=== PATIENT | male | born 1995 | race Caucasian/White ===

== ENCOUNTER 2016-11-18 17:51 | Emergency (ER) | payer BC ==
[~2016-11-18] VITALS: Ht 182.9 cm; Wt 77.3 kg
[2016-11-18 17:55] VITALS: BP 141/80; TEMP 99.1
[2016-11-18] MEDS ORDERED: HUMIRA40 MG/0.8 SQ (18:18)
[2016-11-18 19:08] LABS: BASO % 0.4 % (0.0-2.0); EOS # 0.4 (0.0-0.7); GRAN # 4.5 (1.4-6.5); GRAN % 58.3 % (42.2-75.2); HEMATOCRIT 42.5 % (42.0-52.0); LYMPH # 2.1 (1.2-3.4); LYMPH % 27.6 % (20.0-51.0); MEAN CELL VOLUME 90 fl (80.0-100.0); MEAN CORPUSCULAR HEMOGLOBIN 32 pg (27.0-31.0); MEAN CORPUSCULAR HGB CONC 35 g/dl (33.0-37.0); MEAN PLATELET VOLUME 10.1 fl (7.4-10.4); MONO # 0.6 (0.1-0.6); MONO % 8.3 % (1.7-9.3); PLATELET COUNT 216 K/mm3 (130-400); REDCELL DISTRIBUTION WIDTH-CV 12.8 % (11.5-14.5); WHITE BLOOD COUNT 7.7 K/mm3 (4.8-10.8)
[2016-11-18 19:24] LABS: ALANINE AMINOTRANSFERASE 19 U/L (21-72); ALBUMIN 4.5 gm/dL (3.5-5.0); ALKALINE PHOSPHATASE 49 U/L (50-136); ANION GAP 12 mmol/L (7-16); BILIRUBIN,TOTAL 0.9 mg/dL (0.0-1.0); BLOOD UREA NITROGEN 13 mg/dL (9-20); CALCIUM 9.4 mg/dL (8.4-10.2); CARBON DIOXIDE 25 mmol/L (22-30); CHLORIDE 103 mmol/L (98-107); CREATININE, serum 1.07 mg/dL (0.66-1.25); GLUCOSE 83 mg/dL (74-106); POTASSIUM 3.7 mmol/L (3.4-5.0); SODIUM 140 mmol/L (137-145); TOTAL PROTEIN 7.2 gm/dL (6.4-8.2)
[2016-11-18 19:28] LABS: C-REACTIVE PROTEIN < 0.5 mg/dL (0.0-0.9)
[2016-11-18 20:10] VITALS: PULSE 68
== END 2016-11-18 20:10 | disposition home or self-care (01) ==
LOC: COL.ER 17:51
PROVIDERS: Physician Assistant
DX: R53.81 Other malaise (principal); R59.0 Localized enlarged lymph nodes

== ENCOUNTER 2017-06-07 18:08 | Emergency (ER) | payer BC ==
[~2017-06-07] VITALS: Ht 182.9 cm; Wt 80.0 kg
[~2017-06-07 18:08] MED LIST: HUMIRA40 MG/0.8 SQ
[2017-06-07 18:17] VITALS: BP 113/80; TEMP 97.6
[2017-06-07 19:44] LABS: BASO % 0.4 % (0.0-2.0); EOS # 0.1 (0.0-0.7); EOS % 1.4 % (0-4.0); GRAN % 70.6 % (42.2-75.2); HEMATOCRIT 50.7 % (42.0-52.0); HEMOGLOBIN 17.9 g/dl (13.5-18.0); LYMPH # 0.8 (1.2-3.4); LYMPH % 10.8 % (20.0-51.0); MEAN CELL VOLUME 89 fl (80.0-100.0); MEAN CORPUSCULAR HEMOGLOBIN 32 pg (27.0-31.0); MEAN CORPUSCULAR HGB CONC 35 g/dl (33.0-37.0); MEAN PLATELET VOLUME 9.9 fl (7.4-10.4); MONO # 1.2 (0.1-0.6); MONO % 16.4 % (1.7-9.3); PLATELET COUNT 211 K/mm3 (130-400); RED BLOOD COUNT 5.67 M/mm3 (4.20-5.60); REDCELL DISTRIBUTION WIDTH-CV 12.2 % (11.5-14.5)
[2017-06-07 19:54] LABS: ALBUMIN 5.5 gm/dL (3.5-5.0); BILIRUBIN,TOTAL 1.1 mg/dL (0.0-1.0); CALCIUM 9.9 mg/dL (8.4-10.2); CREATININE, serum 0.97 mg/dL (0.66-1.25); POTASSIUM 3.8 mmol/L (3.4-5.0); TOTAL PROTEIN 8.5 gm/dL (6.4-8.2)
[2017-06-07] MEDS ORDERED: ZOFRAN ODT8 MG PO (20:09)
[2017-06-07 20:36] VITALS: PULSE 66
== END 2017-06-07 20:35 | disposition home or self-care (01) ==
LOC: COL.ER 18:08
PROVIDERS: Emergency Medicine
DX: R19.7 Diarrhea, unspecified (principal); K50.90 Crohn's disease, unspecified, without complications; Z88.6 Allergy status to analgesic agent
CPT/HCPCS: J2405; J7030

== ENCOUNTER 2018-12-22 17:35 | Emergency (ER) | payer BC ==
[~2018-12-22] VITALS: Ht 182.9 cm; Wt 80.9 kg
[~2018-12-22 17:35] MED LIST changes: +ZOFRAN ODT8 MG PO
[2018-12-22 17:38] VITALS: BP 117/76; TEMP 97.4
[2018-12-22] MEDS ORDERED: BACTRIM DS 8001 TAB PO (18:02)
[2018-12-22] MEDS ORDERED: PREDNISONE20 MG PO (18:02)
[2018-12-22 18:19] VITALS: PULSE 58
== END 2018-12-22 18:21 | disposition home or self-care (01) ==
LOC: COL.ER 17:35
DX: M70.22 Olecranon bursitis, left elbow (principal); J45.909 Unspecified asthma, uncomplicated; K50.90 Crohn's disease, unspecified, without complications; Z88.8 Allergy status to other drugs, medicaments and biological substances; Z98.890 Other specified postprocedural states
CPT/HCPCS: J7512